=== PATIENT | female | born 1985 | race Two or more races ===

== ENCOUNTER → 2017-08-26 | Outpatient (CLI) | payer OTHER ==
--- NOTE | 2017-08-26 21:36 | RADIOLOGY REPORT (SQ) ---
EXAM DESCRIPTION: U/S NON-OB PELVIS TV W/O DOP COMPLETED DATE/TIME: 08/26/2017 6:36 pm REASON FOR STUDY: R10.2 PELVIC AND PERINEAL PAIN R10.2 PELVIC AND PERINEAL PAIN LMP 08/10/2017 COMPARISON: None. TECHNIQUE: Dynamic and static grayscale images acquired of the pelvis via transvaginal approach and recorded on PACS. Additional selected color Doppler and spectral images recorded. LIMITATIONS: None. FINDINGS: UTERUS: Contour normal. No mass. ENDOMETRIAL STRIPE: Slightly thickened, but within normal limits for the patient's age and menstrual status. CERVIX: 3.1 cm. Nabothian cysts are present. A tiny amount of fluid is present in the endocervical canal. RIGHT OVARY AND DOPPLER: Normal size. No worrisome masses. Normal arterial vascular flow without evid ence for torsion. LEFT OVARY AND DOPPLER: Normal size. No worrisome masses. Normal arterial vascular flow without evide nce for torsion. FREE FLUID: Small amount free fluid in 1st the cul-de-sac. OTHER: No other significant finding. MEASUREMENTS: UTERUS: 8.5 x 3.7 x 5.2 cm. ENDOMETRIAL STRIPE: 15 mm RIGHT OVARY: 3 x 1.9 x 2.2 cm. LEFT OVARY: 3.2 x 2 x 2.1 cm. IMPRESSION: The endometrium is slightly thickened but within normal limits for the patient's age. N abothian cysts are present. Small amount of free fluid in the cul-de-sac. Likely normal physiologic al fluid. TECHNICAL DOCUMENTATION: JOB ID: [id number] [employer]- All Rights Reserved Rev-07/03 Reading location - IP/workstation name: [email or web address]
== END ==
LOC: RAD 18:46
PROVIDERS: ATTEND Physician Assistant
DX: R10.2 Pelvic and perineal pain (principal)
CPT/HCPCS: 76830